=== PATIENT | female | born 1965 | race Hispanic/Latino ===

== ENCOUNTER → 2017-07-09 | Outpatient (CLI) | payer BC ==
--- NOTE | 2017-07-10 07:13 | Diagnostic Imaging Report ---
EXAMINATION: MRI of the brain without contrast. HISTORY: Status post concussion, head trauma, headaches COMPARISON: None. TECHNIQUE: Sagittal T2; axial DWI, T2, FLAIR, T1-IR, T2 gradient echo; coronal FLAIR. IMAGE QUALITY: Adequate. FINDINGS: Parenchyma: 1. No abnormal signal intensity 2. No mass, hemorrhage, acute or chronic infarcts. Skull: Unremarkable. Vessels: Expected flow voids present in the major arteries and dural sinuses. Extra-axial spaces: No abnormal signal intensity or mass effect. Brain volume: Within normal limits for age. Ventricles: No hydrocephalus or displacement. Foramen magnum: Unremarkable. Sella: Unremarkable. Paranasal / mastoid sinuses: No significant inflammatory disease. IMPRESSION: No intracranial abnormalities, particularly no evidence of hemorrhage. Signed by: Dr. Hollie Floyd M.D. on 07/10/2017 7:09 AM
== END ==
LOC: MRI 10:27
PROVIDERS: ATTEND Specialist
DX: S06.0X0A Concussion without loss of consciousness, initial encounter (principal); R51 Headache
CPT/HCPCS: 70551

== ENCOUNTER → 2017-10-30 | Outpatient (CLI) | payer BC ==
--- NOTE | 2017-10-30 14:40 | Diagnostic Imaging Report ---
PROCEDURE:FOOT COMPLETE BILATERAL INDICATION:Bilateral foot pain COMPARISON:None. FINDINGS: Right foot: No acute fractures or dislocations. Degenerative changes of the hallux sesamoids. Small calcaneal enthesophyte. Soft tissues are unremarkable. Left foot: No acute fractures or dislocations. Joint spaces are preserved. Tiny plantar and small dorsal calcaneal enthesophytes. Soft tissues are unremarkable. CONCLUSION: No acute osseous abnormalities. Dictated by: Harshad Ennis M.D. on 10/30/2017 at 14:41 Electronically approved by: Harshad Ennis M.D. on 10/30/2017 at 14:41
--- NOTE | 2017-10-30 15:59 | Diagnostic Imaging Report ---
PROCEDURE:HAND THREE VIEWS BILATERAL TECHNIQUE:AP, lateral , and oblique radiographs of the right and left hands. INDICATION:Bilateral hand pain. COMPARISON:None. FINDINGS: No acute displaced fractures or dislocations. Mild degenerative changes of the right and left first interphalangeal joints with osteophytosis. Soft tissues are unremarkable. CONCLUSION: No acute osseous abnormalities. Dictated by: Harhsad Ennis M.D. on 10/30/2017 at 16:00 Electronically approved by: Harshad Ennis M.D. on 10/30/2017 at 16:00
== END ==
LOC: RAD 13:33
PROVIDERS: ATTEND Specialist
DX: M79.642 Pain in left hand (principal); M79.641 Pain in right hand; M79.672 Pain in left foot; M79.671 Pain in right foot

== ENCOUNTER 2018-02-01 16:22 | Emergency (ER) | payer BC | END 2018-02-01 18:50 | disposition left against medical advice (07) | LOC: ER 16:22 | DX: R50.9 Fever, unspecified (principal) ==

== ENCOUNTER → 2019-08-15 | Day surgery (SDC) | payer BC ==
[~2019-08-15] MED LIST: FENTANYL CITRATE/PF 100MCG/2 ML INJ ONE; HYOSCYAMINE 0.125 MG TAB ONE; MAXZIDE 37.5 M1 EACH PO; MIDAZOLAM HCL 2 MG/2 ML VIAL ONE; PHENTERMINE H37.5 M1 PO; PROPOFOL IV EMULSION 10 MG/ML 50 ML VIAL ONE
[2019-08-15 15:30] VITALS: BP 138/66
--- NOTE | 2019-08-15 22:49 | Operative Report ---
DATE OF PROCEDURE: 08/15/2019 SURGEON: Vikas Cedeño MD PROCEDURES: Esophagogastroduodenoscopy with polypectomy and biopsies and colonoscopy with polypectomy. INDICATIONS FOR EGD: Dyspepsia. INDICATIONS FOR COLONOSCOPY: Colorectal cancer screening. MEDICATIONS: The patient was done under MAC, please see anesthesiologist's note. PROCEDURE IN DETAIL: With the patient in the left lateral decubitus position, a flexible fiberoptic Olympus gastroscope was introduced into the esophagus under direct visualization without any difficulty. There was some patchy erythema noted in the distal esophagus. A focal nodularity was noted at the GE junction that was biopsied. The scope was then advanced with ease into the stomach. Mucosa overlying the antrum and the body revealed some patchy erythema and [id number] edema and biopsies were obtained and sent to stain for H. pylori. Hyperplastic-appearing polyps were noted in the body of the stomach and somewhat partially excised with cold biopsy forceps. Pylorus was of normal contour and shape, was intubated with ease and the scope was advanced all the way to the second portion of the duodenum. The scope was then withdrawn slowly and biopsies were obtained from the second portion as well as from the duodenal bulb to rule out sprue. A minute nodule was noted in the duodenal bulb along the anterior wall and that was biopsied. The scope was then withdrawn back into the stomach and retroflexed mucosa overlying the fundus and cardia appeared to be within normal limits. The scope was then straightened out it was subsequently withdrawn. The patient tolerated the procedure well. IMPRESSION: 1. Distal esophagitis, mild. 2. Focal nodularity, GE junction, biopsied. 3. Gastritis, biopsied. Biopsies sent to stain for H pylori. 4. Gastric polyps, hyperplastic-appearing, body, partially excised with the cold biopsy forceps. 5. Nodule, duodenal bulb, anterior wall, biopsied. 6. Rule out sprue. PLAN: Follow up histology. Initiate Protonix 40 mg one p.o. q.a.m. before meals. The patient was then turned around. After adequate lubrication of the anal canal, flexible fiberoptic Olympus colonoscope was inserted into the rectum with ease and advanced all the way to the cecum. It was then withdrawn slowly. Mucosa overlying the cecum and ascending colon appeared to be within normal limits. Two new polyps were hot biopsied from the distal transverse colon. Diverticular disease was noted to involve the descending and the sigmoid colon. One polyp was hot snared, one polyp was hot biopsied from the rectum. The scope was then retroflexed into the distal rectum and small internal hemorrhoids were noted, none of which was actively bleeding. The scope was then straightened out, it was subsequently withdrawn. The patient tolerated the procedure well. IMPRESSION: 1. Transverse colon polyps x2, hot biopsied. 2. Diverticulosis. 3. Rectal polyps x2, one hot snared and one hot biopsied. 4. Internal hemorrhoids, none actively bleeding. PLAN: Follow up histology. Initiate high-fiber, low-fat diet. Initiate high-fiber supplement. The patient might benefit from a followup colonoscopy in 3 years. Vikas Cedeño MD [facility] [place]/[facility] /[id number] cc: Genaro Correa MD
== END | disposition home or self-care (01) ==
LOC: OR 11:30
PROVIDERS: ATTEND Internal Medicine Gastroenterology
DX: Z12.11 Encounter for screening for malignant neoplasm of colon (principal); K63.5 Polyp of colon; K62.1 Rectal polyp; K31.7 Polyp of stomach and duodenum; K29.70 Gastritis, unspecified, without bleeding; K29.80 Duodenitis without bleeding; K22.9 Disease of esophagus, unspecified; K22.8 Other specified diseases of esophagus; K57.30 Diverticulosis of large intestine without perforation or abscess without bleeding; K59.09 Other constipation; K21.9 Gastro-esophageal reflux disease without esophagitis; K64.8 Other hemorrhoids; D64.9 Anemia, unspecified; D89.89 Other specified disorders involving the immune mechanism, not elsewhere classified; N39.0 Urinary tract infection, site not specified; I10 Essential (primary) hypertension; I49.9 Cardiac arrhythmia, unspecified; I20.9 Angina pectoris, unspecified; E66.01 Morbid (severe) obesity due to excess calories; F32.9 Major depressive disorder, single episode, unspecified; F41.9 Anxiety disorder, unspecified; J45.909 Unspecified asthma, uncomplicated; G47.33 Obstructive sleep apnea (adult) (pediatric); M06.9 Rheumatoid arthritis, unspecified; Z88.0 Allergy status to penicillin; Z01.810 Encounter for preprocedural cardiovascular examination; Z68.39 Body mass index [BMI] 39.0-39.9, adult
CPT/HCPCS: 43239; 45384; 45385; 93005; J2250; J2704; J3010; 45378